=== PATIENT | female | born 1955 | race Caucasian/White ===

== ENCOUNTER → 2017-10-22 10:18 | Outpatient (CLI) | payer MEDICARE, SELFPAY ==
[2017-10-22 10:24] LABS: Microscopic, Urine URINE MICROSCOPIC (MICROSCOPIC)
[2017-10-22 10:43] LABS: Appearance,Urine SL CLOUDY (Clear); Bilirubin,Urine Negative (Negative); Blood, Urine Negative (Negative); Color,Urine YELLOW (Yellow); Glucose,Urine (UA) Negative (Negative); Ketones,Urine Negative (Negative); Nitrate,Urine Negative (Negative); PH,Urine 5.5 (5.0-8.5); Protein,Urine Negative (Negative); Specific Gravity, Urine 1.025 (1.005-1.030); Urobilinogen,Urine 0.2 EU/dl (0.2)
[2017-10-22 10:48] LABS: Leukocyte Esterase,Urine 1+ (Negative)
[2017-10-22 10:50] LABS: Basophils % 0.5 % (0.1-2.0); Eosinophils # 0.2 K/mm3 (0.0-0.4); Hematocrit 48.2 % (37.0-47.0); Hemoglobin 14.7 g/dL (12.2-16.2); Lymphocytes % 37.8 K/mm3 (10-50); Mean Corpuscular HGB Conc 30.6 g/dL (31.8-35.4); Mean Corpuscular Hemoglobin 28.8 pg (27.0-31.2); Mean Corpuscular Volume 94.2 fl (81-99); Mean Platelet Volume 9.1 fl (7.4-10.4); Monocytes # 0.6 K/mm3 (0.1-1.0); Neutrophils # 4.1 K/mm3 (1.8-7.8); Neutrophils % 51.7 % (37.0-80.0); Platelet Count 231 K/mm3 (142-424); Red Blood Count 5.11 M/mm3 (4.20-5.40); Red Cell Distribution Width 13.9 % (11.5-17.5); White Blood Count 7.9 K/mm3 (4.8-10.8)
[2017-10-22 10:53] LABS: Bacteria,Urine 3+ /lpf; Squamous Epithelial Cell,Urine TNTC #/hpf (0-5)
[2017-10-22 11:02] LABS: Total Protein,Urine Random 42.8 mg/dL (0.0-11.9)
[2017-10-22 12:51] LABS: Albumin Level 3.5 gm/dL (3.4-5.0); Anion Gap 13.2 mEq/L (5-15); Blood Urea Nitrogen 27 mg/dL (7-18); Calcium 8.6 mg/dL (8.5-10.1); Carbon Dioxide 26 mmol/L (21.0-32.0); Chloride 102 mmol/L (98-107); Creatinine,Serum 1.55 mg/dL (0.55-1.02); Estimated Glomerular Filt Rate 34 ml/min (>60); GFR (African American) 41 ML/MIN (>60); Glucose 98 mg/dL (74-106); Phosphorous 4.5 mg/dL (2.4-4.9); Potassium 4.2 mmoL/L (3.5-5.1); Sodium 137 mmol/L (136-145)
[2017-10-23 12:05] LABS: Creatinine,Urine Random 216 mg/dL (20-320)
[2017-10-26 18:16] LABS: Parathyroid Hormone Intact 39 pg/mL (15-65)
== END ==
PROVIDERS: PCP Internal Medicine Nephrology; Visit Provider Internal Medicine Nephrology
DX: N18.3 Chronic kidney disease, stage 3 (moderate) (principal); R82.90 Unspecified abnormal findings in urine
CPT/HCPCS: 36415; 80069; 81001; 82570; 82652; 83970; 84155; 85025; 86140; 87086; 87088; 87186

== ENCOUNTER → 2017-10-29 14:27 | Outpatient (POV) | payer MEDICARE, SELFPAY | PROVIDERS: PCP Internal Medicine Nephrology; Visit Provider Internal Medicine Nephrology | DX: Z00.00 Encounter for general adult medical examination without abnormal findings (principal) ==

== ENCOUNTER → 2017-11-13 15:32 | Outpatient (REF) | payer MEDICARE, SELFPAY ==
[2017-11-13 18:55] LABS: Amphetamine/Metha Screen,Urine Negative ng/mL (<1000); Barbiturates Screen,Urine Negative ng/mL (<200); Benzodiazepines Screen,Urine Negative ng/mL (200); Cannabinoid Screen,Urine Negative ng/mL (<50); Cocaine Screen,Urine Negative ng/g (<300); Methadone Screen,Urine Negative ng/mL (<300); Opiate Screen,Urine Positive ng/mL (<300); Phencyclidine Screen,Urine Negative ng/mL (<25)
== END ==
LOC: LAB 15:32
PROVIDERS: Visit Provider Emergency Medicine
DX: Z79.899 Other long term (current) drug therapy (principal)
CPT/HCPCS: 80305

== ENCOUNTER → 2017-12-11 15:28 | Outpatient (REF) | payer MEDICARE, SELFPAY ==
[2017-12-11 22:05] LABS: Amphetamine/Metha Screen,Urine Negative ng/mL (<1000); Barbiturates Screen,Urine Negative ng/mL (<200); Benzodiazepines Screen,Urine Negative ng/mL (200); Cannabinoid Screen,Urine Negative ng/mL (<50); Cocaine Screen,Urine Negative ng/g (<300); Methadone Screen,Urine Negative ng/mL (<300); Opiate Screen,Urine Positive ng/mL (<300); Phencyclidine Screen,Urine Negative ng/mL (<25)
== END ==
LOC: LAB 15:28
PROVIDERS: Visit Provider Emergency Medicine
DX: Z79.899 Other long term (current) drug therapy (principal)
CPT/HCPCS: 80305

== ENCOUNTER → 2018-01-08 15:49 | Outpatient (REF) | payer MEDICARE, SELFPAY ==
[2018-01-08 18:42] LABS: Amphetamine/Metha Screen,Urine Negative ng/mL (<1000); Barbiturates Screen,Urine Negative ng/mL (<200); Benzodiazepines Screen,Urine Negative ng/mL (200); Cannabinoid Screen,Urine Negative ng/mL (<50); Cocaine Screen,Urine Negative ng/g (<300); Methadone Screen,Urine Negative ng/mL (<300); Opiate Screen,Urine Positive ng/mL (<300); Phencyclidine Screen,Urine Negative ng/mL (<25)
== END ==
LOC: LAB 15:49
PROVIDERS: Visit Provider Emergency Medicine
DX: Z79.899 Other long term (current) drug therapy (principal)
CPT/HCPCS: 80305

== ENCOUNTER → 2018-01-21 12:36 | Outpatient (CLI) | payer MEDICARE, SELFPAY ==
[2018-01-21 12:54] LABS: Microscopic, Urine URINE MICROSCOPIC (MICROSCOPIC)
--- NOTE | 2018-01-21 13:14 | US_ITS ---
US kidney retroperitoneal comp HISTORY: Chronic renal disease ITS.REASON: CKD 3 ORDERING PHYSICIAN: Fili Schultz PATIENT AGE: 62 years FINDINGS: RIGHT KIDNEY: 8 4 x 6 cm with mild cortical thinning. No hydronephrosis LEFT KIDNEY:10 x 4 x 6 cm with cortical thinning. No hydronephrosis. Bilateral renal blood flow noted. Unremarkable echogenicity OTHER FINDINGS: No other pertinent findings IMPRESSION: Bilateral renal cortical thinning. No hydronephrosis
[2018-01-21 13:27] LABS: Appearance,Urine SL CLOUDY (Clear); Bilirubin,Urine Negative (Negative); Blood, Urine Negative (Negative); Color,Urine YELLOW (Yellow); Glucose,Urine (UA) TRACE (Negative); Ketones,Urine Negative (Negative); Leukocyte Esterase,Urine Negative (Negative); Nitrate,Urine Negative (Negative); Protein,Urine Negative (Negative); Specific Gravity, Urine 1.025 (1.005-1.030); Urobilinogen,Urine 0.2 EU/dl (0.2)
[2018-01-21 13:32] LABS: Creatinine,Urine Random 83 mg/dL (20-320); Total Protein,Urine Random 28.7 mg/dL (0.0-11.9)
[2018-01-21 13:37] LABS: Bacteria,Urine 2+ /lpf
[2018-01-21 13:53] LABS: Basophils # 0.1 K/mm3 (0-0.2); Basophils % 0.6 % (0.1-2.0); Eosinophils % 0.3 % (0.1-12.0); Hematocrit 50.1 % (37.0-47.0); Hemoglobin 15.6 g/dL (12.2-16.2); Lymphocytes % 25.3 K/mm3 (10-50); Mean Corpuscular HGB Conc 31.1 g/dL (31.8-35.4); Mean Corpuscular Volume 96.3 fl (81-99); Mean Platelet Volume 9.2 fl (7.4-10.4); Monocytes # 0.6 K/mm3 (0.1-1.0); Monocytes % 5.3 % (1.7-9.3); Neutrophils # 8.2 K/mm3 (1.8-7.8); Neutrophils % 68.5 % (37.0-80.0); Platelet Count 121 K/mm3 (142-424); Red Cell Distribution Width 15.8 % (11.5-17.5)
[2018-01-21 14:25] LABS: Albumin Level 3.4 gm/dL (3.4-5.0); Anion Gap 12.4 mEq/L (5-15); Blood Urea Nitrogen 35 mg/dL (7-18); Calcium 9.1 mg/dL (8.5-10.1); Carbon Dioxide 31 mmol/L (21.0-32.0); Chloride 101 mmol/L (98-107); Creatinine,Serum 0.99 mg/dL (0.55-1.02); Estimated Glomerular Filt Rate 57 ml/min (>60); GFR (African American) 69 ML/MIN (>60); Glucose 195 mg/dL (74-106); Phosphorous 3.8 mg/dL (2.4-4.9); Potassium 5.4 mmoL/L (3.5-5.1); Sodium 139 mmol/L (136-145)
[2018-01-22 06:16] LABS: HIV Screen 4th Generation wRfx Non Reactive (Non Reactive)
[2018-01-22 12:10] LABS: Complement C3 144 mg/dL (82-167); Hepatitis C Antibody >11.0 s/co ratio (0.0-0.9)
== END ==
PROVIDERS: PCP Emergency Medicine; Visit Provider Internal Medicine Nephrology
DX: N18.3 Chronic kidney disease, stage 3 (moderate) (principal); D63.1 Anemia in chronic kidney disease; R82.90 Unspecified abnormal findings in urine; Z11.4 Encounter for screening for human immunodeficiency virus [HIV]
CPT/HCPCS: 36415; 76770; 80069; 81001; 82570; 84155; 85025; 86161; 86703; 87086; 87380; 87522; G0432

== ENCOUNTER → 2018-02-04 15:42 | Outpatient (POV) | payer MEDICARE, SELFPAY | PROVIDERS: PCP Emergency Medicine; Visit Provider Internal Medicine Nephrology | DX: Z00.00 Encounter for general adult medical examination without abnormal findings (principal) ==

== ENCOUNTER → 2018-02-06 14:50 | Outpatient (REF) | payer MEDICARE, SELFPAY ==
[2018-02-06 19:08] LABS: Amphetamine/Metha Screen,Urine Negative ng/mL (<1000); Barbiturates Screen,Urine Negative ng/mL (<200); Benzodiazepines Screen,Urine Negative ng/mL (200); Cannabinoid Screen,Urine Positive ng/mL (<50); Cocaine Screen,Urine Negative ng/g (<300); Methadone Screen,Urine Negative ng/mL (<300); Opiate Screen,Urine Positive ng/mL (<300); Phencyclidine Screen,Urine Negative ng/mL (<25)
== END ==
LOC: LAB 14:50
PROVIDERS: Visit Provider Emergency Medicine
DX: Z79.899 Other long term (current) drug therapy (principal)
CPT/HCPCS: 80305

== ENCOUNTER → 2018-03-08 09:29 | Outpatient (REF) | payer MEDICARE, SELFPAY ==
[2018-03-11 13:54] LABS: Amphetamine/Metha Screen,Urine Negative ng/mL (<1000); Barbiturates Screen,Urine Negative ng/mL (<200); Benzodiazepines Screen,Urine Positive ng/mL (200); Cannabinoid Screen,Urine Negative ng/mL (<50); Cocaine Screen,Urine Negative ng/g (<300); Methadone Screen,Urine Negative ng/mL (<300); Opiate Screen,Urine Positive ng/mL (<300); Phencyclidine Screen,Urine Positive ng/mL (<25)
== END ==
LOC: LAB 09:29
PROVIDERS: Visit Provider Emergency Medicine
DX: Z79.899 Other long term (current) drug therapy (principal)
CPT/HCPCS: 80305

== ENCOUNTER → 2018-04-05 14:09 | Outpatient (CLI) | payer MEDICARE, SELFPAY ==
[2018-04-05 18:42] LABS: Amphetamine/Metha Screen,Urine Negative ng/mL (<1000); Barbiturates Screen,Urine Negative ng/mL (<200); Benzodiazepines Screen,Urine Negative ng/mL (<200); Cannabinoid Screen,Urine Negative ng/mL (<50); Cocaine Screen,Urine Negative ng/mL (<300); Methadone Screen,Urine Negative ng/mL (<300); Opiate Screen,Urine Positive ng/mL (<300); Phencyclidine Screen,Urine Negative ng/mL (<25)
== END ==
PROVIDERS: Visit Provider Emergency Medicine
DX: Z79.899 Other long term (current) drug therapy (principal)
CPT/HCPCS: 80305

== ENCOUNTER → 2018-06-05 14:34 | Outpatient (CLI) | payer MEDICARE, SELFPAY ==
[2018-06-05 18:38] LABS: Amphetamine/Metha Screen,Urine Negative ng/mL (<1000); Barbiturates Screen,Urine Negative ng/mL (<200); Benzodiazepines Screen,Urine Positive ng/mL (<200); Cannabinoid Screen,Urine Negative ng/mL (<50); Cocaine Screen,Urine Negative ng/mL (<300); Methadone Screen,Urine Negative ng/mL (<300); Opiate Screen,Urine Positive ng/mL (<300); Phencyclidine Screen,Urine Negative ng/mL (<25)
== END ==
PROVIDERS: Visit Provider Emergency Medicine
DX: Z79.899 Other long term (current) drug therapy (principal)
CPT/HCPCS: 80305

== ENCOUNTER → 2018-07-05 13:45 | Outpatient (REF) | payer MEDICARE, SELFPAY ==
[2018-07-05 18:37] LABS: Amphetamine/Metha Screen,Urine Negative ng/mL (<1000); Barbiturates Screen,Urine Negative ng/mL (<200); Benzodiazepines Screen,Urine Negative ng/mL (<200); Cannabinoid Screen,Urine Negative ng/mL (<50); Cocaine Screen,Urine Negative ng/mL (<300); Methadone Screen,Urine Negative ng/mL (<300); Opiate Screen,Urine Positive ng/mL (<300); Phencyclidine Screen,Urine Negative ng/mL (<25)
[2018-07-05 18:53] LABS: Anion Gap 14.1 mEq/L (5-15); Blood Urea Nitrogen 32 mg/dL (7-18); Calcium 8.6 mg/dL (8.5-10.1); Carbon Dioxide 28 mmol/L (21.0-32.0); Chloride 90 mmol/L (98-107); Creatinine,Serum 1.84 mg/dL (0.55-1.02); Estimated Glomerular Filt Rate 28 ml/min (>60); GFR (African American) 34 ML/MIN (>60); Potassium 5.1 mmoL/L (3.5-5.1); Sodium 127 mmol/L (136-145)
[2018-07-05 19:00] LABS: Hemoglobin A1C 9.4 % (0.0-7.0)
[2018-07-05 20:02] LABS: Glucose 892 mg/dL (74-106)
== END ==
LOC: LAB 13:45
PROVIDERS: Visit Provider Emergency Medicine
DX: Z79.899 Other long term (current) drug therapy (principal); E11.9 Type 2 diabetes mellitus without complications
CPT/HCPCS: 80048; 80305; 83036

== ENCOUNTER → 2018-07-15 07:58 | Outpatient (REF) | payer MEDICARE, SELFPAY ==
[2018-07-16 08:39] LABS: Anion Gap 13.7 mEq/L (5-15); Blood Urea Nitrogen 26 mg/dL (7-18); Calcium 9.1 mg/dL (8.5-10.1); Carbon Dioxide 28 mmol/L (21.0-32.0); Chloride 104 mmol/L (98-107); Creatinine,Serum 1.05 mg/dL (0.55-1.02); Estimated Glomerular Filt Rate 53 ml/min (>60); GFR (African American) 64 ML/MIN (>60); Glucose 302 mg/dL (74-106); Potassium 4.7 mmoL/L (3.5-5.1); Sodium 141 mmol/L (136-145)
== END ==
LOC: LAB 07:58
PROVIDERS: Visit Provider Emergency Medicine
DX: I10 Essential (primary) hypertension (principal)
CPT/HCPCS: 80048

== ENCOUNTER → 2018-08-05 17:54 | Outpatient (CLI) | payer MEDICARE, SELFPAY ==
[2018-08-05 20:16] LABS: Amphetamine/Metha Screen,Urine Negative ng/mL (<1000); Barbiturates Screen,Urine Negative ng/mL (<200); Benzodiazepines Screen,Urine Negative ng/mL (<200); Cannabinoid Screen,Urine Negative ng/mL (<50); Cocaine Screen,Urine Negative ng/mL (<300); Methadone Screen,Urine Negative ng/mL (<300); Opiate Screen,Urine Positive ng/mL (<300); Phencyclidine Screen,Urine Negative ng/mL (<25)
== END ==
PROVIDERS: Visit Provider Emergency Medicine
DX: Z79.899 Other long term (current) drug therapy (principal)
CPT/HCPCS: 80305

== ENCOUNTER → 2018-09-03 18:03 | Outpatient (CLI) | payer MEDICARE, SELFPAY ==
[2018-09-03 19:25] LABS: Amphetamine/Metha Screen,Urine Negative ng/mL (<1000); Barbiturates Screen,Urine Negative ng/mL (<200); Benzodiazepines Screen,Urine Negative ng/mL (<200); Cannabinoid Screen,Urine Negative ng/mL (<50); Cocaine Screen,Urine Negative ng/mL (<300); Methadone Screen,Urine Negative ng/mL (<300); Opiate Screen,Urine Positive ng/mL (<300); Phencyclidine Screen,Urine Negative ng/mL (<25)
== END ==
PROVIDERS: Visit Provider Emergency Medicine
DX: Z79.899 Other long term (current) drug therapy (principal)
CPT/HCPCS: 80305

== ENCOUNTER → 2018-10-04 18:33 | Outpatient (CLI) | payer MEDICARE, SELFPAY ==
[2018-10-04 21:21] LABS: Amphetamine/Metha Screen,Urine Negative ng/mL (<1000); Barbiturates Screen,Urine Negative ng/mL (<200); Benzodiazepines Screen,Urine Positive ng/mL (<200); Cannabinoid Screen,Urine Negative ng/mL (<50); Cocaine Screen,Urine Negative ng/mL (<300); Methadone Screen,Urine Negative ng/mL (<300); Opiate Screen,Urine Positive ng/mL (<300); Phencyclidine Screen,Urine Negative ng/mL (<25)
[2018-10-10 09:23] LABS: Alprazolam Negative (Cutoff=100); Benzodiazepines Positive ng/mL (Cutoff=100); Clonazepam Negative (Cutoff=100); Flurazepam Negative (Cutoff=100); Lorazepam Negative (Cutoff=100); Midazolam Negative (Cutoff=100); Temazepam Positive (.); Triazolam Negative (Cutoff=100)
== END ==
PROVIDERS: Visit Provider Emergency Medicine
DX: Z79.899 Other long term (current) drug therapy (principal)
CPT/HCPCS: 80305; 80346

== ENCOUNTER → 2018-10-15 19:10 | Outpatient (CLI) | payer MEDICARE, SELFPAY ==
[2018-10-15 19:44] LABS: Basophils % 0.5 % (0.1-2.0); Eosinophils # 0.1 K/mm3 (0.0-0.4); Eosinophils % 0.6 % (0.1-12.0); Hematocrit 43.2 % (37.0-47.0); Lymphocytes # 2.7 K/mm3 (0.7-4.5); Lymphocytes % 35.2 % (10-50); Mean Corpuscular Hemoglobin 31.2 pg (27.0-31.2); Mean Platelet Volume 9.4 fl (7.4-10.4); Monocytes # 0.5 K/mm3 (0.1-1.0); Monocytes % 5.9 % (1.7-9.3); Neutrophils # 4.5 K/mm3 (1.8-7.8); Neutrophils % 57.9 % (37.0-80.0); Platelet Count 238 K/mm3 (142-424); Red Blood Count 4.16 M/mm3 (4.20-5.40); Red Cell Distribution Width 14.3 % (11.5-17.5); White Blood Count 7.7 K/mm3 (4.8-10.8)
[2018-10-15 20:01] LABS: Alanine Aminotransferase 21 U/L (12-78); Albumin Level 3.4 gm/dL (3.4-5.0); Alkaline Phosphatase 90 U/L (46-116); Anion Gap 16.4 mEq/L (5-15); Aspartate Amino Transferase 18 U/L (15-37); Bilirubin,Total 0.2 mg/dL (0.2-1.0); Blood Urea Nitrogen 15 mg/dL (7-18); Calcium 8.7 mg/dL (8.5-10.1); Carbon Dioxide 27 mmol/L (21.0-32.0); Chloride 103 mmol/L (98-107); Chol/HDL Ratio 3.3 (1-3.5); Cholesterol 157 mg/dL (140-200); Creatinine,Serum 1.23 mg/dL (0.55-1.02); Estimated Glomerular Filt Rate 44 ml/min (>60); Free T4 (Free Thyroxine) 1.37 ng/dl (0.76-1.46); GFR (African American) 54 ML/MIN (>60); Globulin 3.4 gm/dl (1.3-3.2); Glucose 99 mg/dL (74-106); HDL Cholesterol 47 mg/dL (29-89); LDL Cholesterol 85 mg/dL (0-130); Potassium 4.4 mmoL/L (3.5-5.1); Sodium 142 mmol/L (136-145); Thyroid Stimulating Hormone 0.39 uIU/ml (0.358-3.740); Total Protein,Serum 6.8 gm/dL (6.4-8.2); Triglycerides 127 mg/dL (30-200); VLDL Cholesterol 25 mg/dL (0-40)
[2018-10-17 10:22] LABS: Microalbumin, Urine 50.1 ug/mL (Not Estab.)
== END ==
PROVIDERS: Visit Provider Emergency Medicine
DX: E11.9 Type 2 diabetes mellitus without complications (principal); R39.9 Unspecified symptoms and signs involving the genitourinary system
CPT/HCPCS: 80053; 80061; 82043; 82570; 83036; 84439; 84443; 85025

== ENCOUNTER → 2019-01-29 16:55 | Outpatient (CLI) | payer MEDICARE, SELFPAY ==
[2019-01-29 18:17] LABS: Amphetamine/Metha Screen,Urine Negative ng/mL (<1000); Barbiturates Screen,Urine Negative ng/mL (<200); Benzodiazepines Screen,Urine Negative ng/mL (<200); Cannabinoid Screen,Urine Negative ng/mL (<50); Cocaine Screen,Urine Negative ng/mL (<300); Methadone Screen,Urine Negative ng/mL (<300); Opiate Screen,Urine Positive ng/mL (<300); Phencyclidine Screen,Urine Negative ng/mL (<25)
== END ==
PROVIDERS: Visit Provider Emergency Medicine
DX: Z79.899 Other long term (current) drug therapy (principal)
CPT/HCPCS: 80305

== ENCOUNTER → 2019-03-28 16:34 | Outpatient (CLI) | payer MEDICARE, SELFPAY ==
[2019-03-28 18:06] LABS: Amphetamine/Metha Screen,Urine Negative ng/mL (<1000); Barbiturates Screen,Urine Negative ng/mL (<200); Benzodiazepines Screen,Urine Negative ng/mL (<200); Cannabinoid Screen,Urine Positive ng/mL (<50); Cocaine Screen,Urine Negative ng/mL (<300); Methadone Screen,Urine Negative ng/mL (<300); Opiate Screen,Urine Positive ng/mL (<300); Phencyclidine Screen,Urine Negative ng/mL (<25)
== END ==
PROVIDERS: Visit Provider Emergency Medicine
DX: Z79.899 Other long term (current) drug therapy (principal)
CPT/HCPCS: 80305

== ENCOUNTER → 2019-06-11 18:31 | Outpatient (CLI) | payer MEDICARE, SELFPAY ==
[2019-06-11 19:03] LABS: Basophils % 0.3 % (0.1-2.0); Eosinophils # 0.2 K/mm3 (0.0-0.4); Eosinophils % 1.7 % (0.1-12.0); Hematocrit 44.9 % (37.0-47.0); Lymphocytes # 3.2 K/mm3 (0.7-4.5); Lymphocytes % 34.3 % (10-50); Mean Corpuscular HGB Conc 31.1 g/dL (31.8-35.4); Mean Corpuscular Volume 102.7 fl (81-99); Mean Platelet Volume 9.4 fl (7.4-10.4); Monocytes # 0.7 K/mm3 (0.1-1.0); Monocytes % 7.3 % (1.7-9.3); Neutrophils # 5.2 K/mm3 (1.8-7.8); Neutrophils % 56.4 % (37.0-80.0); Platelet Count 282 K/mm3 (142-424); Red Blood Count 4.37 M/mm3 (4.20-5.40); White Blood Count 9.3 K/mm3 (4.8-10.8)
[2019-06-11 19:20] LABS: Hemoglobin A1C 6.3 % (0.0-7.0)
[2019-06-11 19:24] LABS: Alanine Aminotransferase 26 U/L (12-78); Albumin Level 3.7 gm/dL (3.4-5.0); Albumin/Globulin Ratio 1.2 (1.1-1.8); Alkaline Phosphatase 68 U/L (46-116); Anion Gap 12.7 mEq/L (5-15); Aspartate Amino Transferase 23 U/L (15-37); Bilirubin,Total 0.4 mg/dL (0.2-1.0); Blood Urea Nitrogen 14 mg/dL (7-18); Calcium 9.2 mg/dL (8.5-10.1); Carbon Dioxide 31 mmol/L (21.0-32.0); Chloride 102 mmol/L (98-107); Chol/HDL Ratio 4.3 (1-3.5); Cholesterol 189 mg/dL (140-200); Creatinine,Serum 1.07 mg/dL (0.55-1.02); Estimated Glomerular Filt Rate 52 ml/min (>60); Free T4 (Free Thyroxine) 1.17 ng/dl (0.76-1.46); GFR (African American) 63 ML/MIN (>60); Globulin 3.2 gm/dl (1.3-3.2); Glucose 132 mg/dL (74-106); HDL Cholesterol 44 mg/dL (29-89); LDL Cholesterol 122 mg/dL (0-130); Potassium 4.7 mmoL/L (3.5-5.1); Sodium 141 mmol/L (136-145); Thyroid Stimulating Hormone 3.25 uIU/ml (0.358-3.740); Total Protein,Serum 6.9 gm/dL (6.4-8.2); Triglycerides 116 mg/dL (30-200); VLDL Cholesterol 23 mg/dL (0-40)
[2019-06-13 10:10] LABS: Vitamin D 25 Hydroxy 24.7 ng/mL (30.0-100.0)
== END ==
PROVIDERS: Visit Provider Emergency Medicine
DX: E11.9 Type 2 diabetes mellitus without complications (principal); Z79.4 Long term (current) use of insulin; E55.9 Vitamin D deficiency, unspecified
CPT/HCPCS: 80053; 80061; 82652; 83036; 84439; 84443; 85025

== ENCOUNTER → 2019-06-27 16:47 | Outpatient (CLI) | payer MEDICARE, SELFPAY ==
[2019-07-01 07:06] LABS: Vitamin B12 1287 pg/mL (232-1245)
== END ==
PROVIDERS: Visit Provider Emergency Medicine
DX: R53.83 Other fatigue (principal)
CPT/HCPCS: 82607; 82746

== ENCOUNTER → 2019-10-06 17:14 | Outpatient (CLI) | payer MEDICARE, SELFPAY ==
[2019-10-06 21:39] LABS: Amphetamine/Metha Screen,Urine Negative ng/mL (<1000); Barbiturates Screen,Urine Negative ng/mL (<200); Benzodiazepines Screen,Urine Positive ng/mL (<200); Cannabinoid Screen,Urine Negative ng/mL (<50); Cocaine Screen,Urine Negative ng/mL (<300); Methadone Screen,Urine Negative ng/mL (<300); Opiate Screen,Urine Positive ng/mL (<300); Phencyclidine Screen,Urine Negative ng/mL (<25)
== END ==
PROVIDERS: Visit Provider Emergency Medicine
DX: Z79.899 Other long term (current) drug therapy (principal)
CPT/HCPCS: 80305

== ENCOUNTER → 2021-01-04 08:10 | Outpatient (CLI) | payer MEDICARE, MEDICAID, SELFPAY ==
--- NOTE | 2021-01-04 08:13 | CA_ITS ---
APPROVED REPORT Left Lower Extremity Venous Study for DVT. Excavating Contractor: RYLIE Arnold Indications Lower Extremity Pain: Left left leg pain Vein Imaging CFV (L): compressive, spontaneous, phasic, augmentation SFJ (L): compressive, spontaneous, phasic, augmentation FEM (L): compressive, spontaneous, phasic, augmentation POP (L): compressive, spontaneous, phasic, augmentation DFV (L): compressive, spontaneous, phasic, augmentation PTV (L): compressive, spontaneous, phasic, augmentation GSV (L): compressive, spontaneous, phasic, augmentation SSV (L): compressive, spontaneous, phasic, augmentation Peroneals (L):compressive, spontaneous, phasic, augmentation GAS (L): compressive, spontaneous, phasic, augmentation Findings Negative DVT/SVT. Vessels fully compressible. Conclusion Negative DVT/SVT. Vessels fully compressible. Electronically signed by : Ronn Almanza MD 01/04/2021 16:40:37
== END ==
PROVIDERS: PCP Emergency Medicine; Visit Provider Emergency Medicine
DX: M79.605 Pain in left leg (principal)
CPT/HCPCS: 93971

== ENCOUNTER → 2021-02-01 13:52 | Outpatient (CLI) | payer MEDICARE, MEDICAID, SELFPAY ==
[2021-02-01 14:57] LABS: Amphetamine/Metha Screen,Urine Negative ng/ml (<1000)
[2021-02-01 14:58] LABS: Barbiturates Screen,Urine Negative ng/ml (<200); Benzodiazepines Screen,Urine Positive ng/ml (<200)
[2021-02-01 14:59] LABS: Cannabinoid Screen,Urine Negative ng/ml (<50); Cocaine Screen,Urine Negative ng/ml (<300)
[2021-02-01 15:00] LABS: Methadone Screen,Urine Negative ng/ml (<300)
[2021-02-01 15:03] LABS: Opiate Screen,Urine Positive ng/ml (<300)
[2021-02-01 15:04] LABS: Phencyclidine Screen,Urine Negative ng/ml (<25)
== END ==
PROVIDERS: Visit Provider Emergency Medicine
DX: Z79.899 Other long term (current) drug therapy (principal)
CPT/HCPCS: 80305

== ENCOUNTER → 2021-03-29 13:38 | Outpatient (CLI) | payer MEDICARE, MEDICAID, SELFPAY ==
[2021-03-29 14:32] LABS: Amphetamine/Metha Screen,Urine Negative ng/ml (<1000)
[2021-03-29 14:33] LABS: Barbiturates Screen,Urine Negative ng/ml (<200); Benzodiazepines Screen,Urine Positive ng/ml (<200)
[2021-03-29 14:34] LABS: Cannabinoid Screen,Urine Negative ng/ml (<50)
[2021-03-29 14:35] LABS: Cocaine Screen,Urine Negative ng/ml (<300); Methadone Screen,Urine Negative ng/ml (<300)
[2021-03-29 14:36] LABS: Opiate Screen,Urine Positive ng/ml (<300); Phencyclidine Screen,Urine Negative ng/ml (<25)
== END ==
PROVIDERS: Visit Provider Emergency Medicine
DX: Z79.899 Other long term (current) drug therapy (principal)
CPT/HCPCS: 80305

== ENCOUNTER → 2021-05-25 16:08 | Outpatient (CLI) | payer MEDICARE, MEDICAID, SELFPAY ==
[2021-05-25 16:28] LABS: Basophils # 0.1 K/mm3 (0-0.2); Basophils % 1.1 % (0.1-2.0); Eosinophils # 0.1 K/mm3 (0.0-0.4); Eosinophils % 1.7 % (0.1-12.0); Hematocrit 47.1 % (37.0-47.0); Hemoglobin 14.5 g/dL (12.2-16.2); Lymphocytes # 2.4 K/mm3 (0.7-4.5); Lymphocytes % 35.5 % (10-50); Mean Corpuscular HGB Conc 30.8 g/dL (31.8-35.4); Mean Corpuscular Hemoglobin 30.4 pg (27.0-31.2); Mean Corpuscular Volume 98.5 fl (81-99); Mean Platelet Volume 10.8 fl (7.4-10.4); Monocytes # 0.4 K/mm3 (0.1-1.0); Monocytes % 6.4 % (1.7-9.3); Neutrophils # 3.7 K/mm3 (1.8-7.8); Neutrophils % 55.4 % (37.0-80.0); Platelet Count 179 K/mm3 (142-424); Red Blood Count 4.78 M/mm3 (4.20-5.40); Red Cell Distribution Width 14.6 % (11.5-17.5); White Blood Count 6.7 K/mm3 (4.8-10.8)
[2021-05-25 16:38] LABS: Alanine Aminotransferase 15 U/L (12-78); Albumin/Globulin Ratio 1.5 (1.1-1.8); Alkaline Phosphatase 99 U/L (38-126); Aspartate Amino Transferase 25 U/L (14-36); Bilirubin,Total 0.3 mg/dl (0.2-1.3); Blood Urea Nitrogen 16 mg/dl (7-17); Calcium 8.7 mg/dl (8.4-10.2); Carbon Dioxide 26 mmol/L (22.0-30.0); Chloride 103 mmol/L (98-107); Chol/HDL Ratio 2.6 (1-3.5); Cholesterol 164 mg/dl (140-200); Estimated Glomerular Filt Rate 72 ml/min (>60); GFR (African American) 87 ML/MIN (>60); Globulin 2.7 g/dL (1.3-3.2); Glucose 157 mg/dl (74-100); HDL Cholesterol 64 mg/dl (40-60); Sodium 139 mmol/L (136-145); Total Protein,Serum 6.7 g/dl (6.3-8.2); Triglycerides 107 mg/dl (30-150); VLDL Cholesterol 21 mg/dL (0-40)
[2021-05-25 16:49] LABS: Direct LDL Cholesterol 81.35 mg/dL (100-129)
[2021-05-25 16:54] LABS: 25-OH Vitamin D, Total 38.4 ng/mL (30-100)
[2021-05-25 16:55] LABS: Free T4 (Free Thyroxine) 1.04 ng/dl (0.78-2.19)
[2021-05-25 17:02] LABS: Amphetamine/Metha Screen,Urine Negative ng/ml (<1000)
[2021-05-25 17:03] LABS: Barbiturates Screen,Urine Negative ng/ml (<200); Benzodiazepines Screen,Urine Positive ng/ml (<200)
[2021-05-25 17:04] LABS: Cocaine Screen,Urine Negative ng/ml (<300)
[2021-05-25 17:05] LABS: Methadone Screen,Urine Negative ng/ml (<300)
[2021-05-25 17:06] LABS: Opiate Screen,Urine Negative ng/ml (<300)
[2021-05-25 17:08] LABS: Phencyclidine Screen,Urine Negative ng/ml (<25)
[2021-05-25 17:12] LABS: Cannabinoid Screen,Urine Negative ng/ml (<50)
[2021-05-25 19:52] LABS: Hemoglobin A1C 4.9 % (4.0-6.0)
== END ==
PROVIDERS: Visit Provider Emergency Medicine
DX: E11.9 Type 2 diabetes mellitus without complications (principal); E55.9 Vitamin D deficiency, unspecified; Z79.899 Other long term (current) drug therapy; R82.90 Unspecified abnormal findings in urine
CPT/HCPCS: 80053; 80061; 80305; 82306; 83036; 84439; 84443; 85025; 87086

== ENCOUNTER → 2021-07-18 14:13 | Outpatient (CLI) | payer MEDICARE, MEDICAID, SELFPAY ==
[2021-07-18 14:54] LABS: Amphetamine/Metha Screen,Urine Negative ng/ml (<1000)
[2021-07-18 14:55] LABS: Barbiturates Screen,Urine Negative ng/ml (<200); Benzodiazepines Screen,Urine Negative ng/ml (<200)
[2021-07-18 14:56] LABS: Cannabinoid Screen,Urine Negative ng/ml (<50)
[2021-07-18 14:57] LABS: Cocaine Screen,Urine Negative ng/ml (<300)
[2021-07-18 14:59] LABS: Methadone Screen,Urine Negative ng/ml (<300); Opiate Screen,Urine Positive ng/ml (<300)
[2021-07-18 15:00] LABS: Phencyclidine Screen,Urine Negative ng/ml (<25)
== END ==
PROVIDERS: Visit Provider Emergency Medicine
DX: Z79.899 Other long term (current) drug therapy (principal)
CPT/HCPCS: 80305

== ENCOUNTER → 2021-09-16 18:18 | Outpatient (CLI) | payer MEDICARE, MEDICAID, SELFPAY ==
[2021-09-16 19:50] LABS: Amphetamine/Metha Screen,Urine Negative ng/ml (<1000)
[2021-09-16 19:51] LABS: Barbiturates Screen,Urine Negative ng/ml (<200)
[2021-09-16 19:53] LABS: Benzodiazepines Screen,Urine Positive ng/ml (<200)
[2021-09-16 19:54] LABS: Cannabinoid Screen,Urine Negative ng/ml (<50); Cocaine Screen,Urine Negative ng/ml (<300)
[2021-09-16 19:55] LABS: Methadone Screen,Urine Negative ng/ml (<300); Opiate Screen,Urine Positive ng/ml (<300)
[2021-09-16 19:56] LABS: Phencyclidine Screen,Urine Negative ng/ml (<25)
== END ==
PROVIDERS: Visit Provider Emergency Medicine
DX: Z79.899 Other long term (current) drug therapy (principal)
CPT/HCPCS: 80305

== ENCOUNTER → 2021-11-16 14:50 | Outpatient (CLI) | payer MEDICARE, MEDICAID, SELFPAY ==
[2021-11-16 13:37] LABS: Barbiturates Screen,Urine Negative ng/ml (<200)
[2021-11-16 13:38] LABS: Benzodiazepines Screen,Urine Positive ng/ml (<200)
[2021-11-16 13:39] LABS: Amphetamine/Metha Screen,Urine Negative ng/ml (<1000); Cannabinoid Screen,Urine Negative ng/ml (<50)
[2021-11-16 13:40] LABS: Cocaine Screen,Urine Negative ng/ml (<300)
[2021-11-16 13:41] LABS: Methadone Screen,Urine Negative ng/ml (<300); Opiate Screen,Urine Negative ng/ml (<300)
[2021-11-16 13:42] LABS: Phencyclidine Screen,Urine Negative ng/ml (<25)
== END ==
PROVIDERS: Visit Provider Emergency Medicine
DX: Z79.899 Other long term (current) drug therapy (principal)
CPT/HCPCS: 80305

== ENCOUNTER → 2022-01-11 12:55 | Outpatient (CLI) | payer MEDICARE, MEDICAID, SELFPAY ==
[2022-01-11 14:20] LABS: Amphetamine/Metha Screen,Urine Negative ng/ml (<1000)
[2022-01-11 14:21] LABS: Barbiturates Screen,Urine Negative ng/ml (<200); Benzodiazepines Screen,Urine Positive ng/ml (<200)
[2022-01-11 14:23] LABS: Cannabinoid Screen,Urine Negative ng/ml (<50); Cocaine Screen,Urine Negative ng/ml (<300)
[2022-01-11 14:24] LABS: Methadone Screen,Urine Negative ng/ml (<300)
[2022-01-11 14:27] LABS: Opiate Screen,Urine Positive ng/ml (<300)
[2022-01-11 14:28] LABS: Phencyclidine Screen,Urine Negative ng/ml (<25)
== END ==
PROVIDERS: PCP Emergency Medicine; Visit Provider Emergency Medicine
DX: Z79.899 Other long term (current) drug therapy (principal)
CPT/HCPCS: 80305

== ENCOUNTER → 2022-03-28 14:22 | Outpatient (CLI) | payer MEDICARE, MEDICAID, SELFPAY ==
[2022-03-28 15:05] LABS: Amphetamine/Metha Screen,Urine Negative ng/ml (<1000)
[2022-03-28 15:06] LABS: Barbiturates Screen,Urine Negative ng/ml (<200)
[2022-03-28 15:07] LABS: Benzodiazepines Screen,Urine Positive ng/ml (<200); Cannabinoid Screen,Urine Negative ng/ml (<50)
[2022-03-28 15:08] LABS: Cocaine Screen,Urine Negative ng/ml (<300)
[2022-03-28 15:09] LABS: Methadone Screen,Urine Negative ng/ml (<300); Opiate Screen,Urine Positive ng/ml (<300)
[2022-03-28 15:10] LABS: Phencyclidine Screen,Urine Negative ng/ml (<25)
== END ==
PROVIDERS: PCP Emergency Medicine; Visit Provider Emergency Medicine
DX: Z79.899 Other long term (current) drug therapy (principal)
CPT/HCPCS: 80305

== ENCOUNTER → 2022-06-23 07:17 | Outpatient (CLI) | payer MEDICARE, MEDICAID, SELFPAY ==
[2022-06-23 19:06] LABS: Amphetamine/Metha Screen,Urine Negative ng/ml (<1000)
[2022-06-23 19:07] LABS: Barbiturates Screen,Urine Negative ng/ml (<200)
[2022-06-23 19:09] LABS: Benzodiazepines Screen,Urine Positive ng/ml (<200); Cannabinoid Screen,Urine Positive ng/ml (<50)
[2022-06-23 19:10] LABS: Cocaine Screen,Urine Negative ng/ml (<300)
[2022-06-23 19:11] LABS: Methadone Screen,Urine Negative ng/ml (<300); Opiate Screen,Urine Negative ng/ml (<300)
[2022-06-23 19:12] LABS: Phencyclidine Screen,Urine Negative ng/ml (<25)
== END ==
PROVIDERS: PCP Emergency Medicine; Visit Provider Emergency Medicine
DX: Z79.899 Other long term (current) drug therapy (principal)
CPT/HCPCS: 80305

== ENCOUNTER 2022-06-23 16:02 | Observation (INO) | payer MEDICARE, MEDICAID, SELFPAY ==
[2022-06-23] VITALS (9 sets, daily range): BP systolic 133–162; BP diastolic 67–96; PULSE 70–106; RESP 18–40; TEMP 36.8–36.9; O2SAT 86–99; BMI 24.3
--- NOTE | 2022-06-23 16:06 | CA_ITS ---
APPROVED REPORT EXAM: Comprehensive 2D, Doppler, and color-flow Echocardiogram Licensed Marine Engineer: Lidya Harris RT(R) Ht: 5 ft 1 in Wt: 136lbs BSA: 1.60 BP: 155/91 mmHg Indications: SOB, SMOKER, COPD, cough, hepatitis C, HTN, limited windows due to lung interference. 2D Dimensions LA Volume 15.80 mL LA Volume Index 9.87 mL/m2 (M/F) 16-34 M-Mode Dimensions RVDd 2.77 cm (0.9-2.6) LVDd 3.94 cm (3.5-5.7) LVDs 3.30 cm (3.5-5.7) IVSd 1.33 cm (0.6-1.1) PWd 1.00 cm (0.6-1.1) EF (Teich) 34.70% FS 16.20% EDV (Teich) 67.50 mL ESV (Teich) 44.10 mL LV Diastology E Decel Time 147.00 (160-240 msec) E/A Ratio 0.6 MED E' 6.50 (< 7 cm/sec) E'/MED E' Ratio 8.23 (>14) LAT E' 6.50 (<10 cm/sec) E/LAT E' Ratio 8.23 (>14) Mitral Valve MV E Max Ayush. 54.00 (40-130 cm/s) MV A Velocity 88.00 (40-130 cm/s) E/A Ratio 0.61 MV Decel. Time 147.00 (160-240 ms) MV PHT 43.00 ms Left Ventricle Technically difficult study because of the patient factors and poor acoustic windows. Left atrium is mildly enlarged, left ventricle is normal size mild concentric left ventricular hypertrophy, estimated ejection fraction approximately 50%, there is abnormal septal motion. Diastolic parameters are inconclusive. Right Ventricle Right atrium and right ventricle are mildly enlarged with normal contractility. Aortic Valve Aortic valve is minimally thickened and fibrosed there is no aortic stenosis. There is no aortic insufficiency. Mitral Valve Mitral valve is grossly normal, there is no significant mitral regurgitation seen. Tricuspid Valve Tricuspid valve grossly normal, there is no significant tricuspid regurgitation seen to calculate right ventricular systolic pressure. Pulmonic Valve Pulmonic valve is poorly visualized. Great Vessels Aortic root is normal size. Inferior vena cava is normal size with normal inspiratory collapse. Pericardium No significant pericardial effusion noted. Conclusion 1. Technically difficult and limited study. Normal left ventricular size mild concentric left ventricular hypertrophy, estimated ejection fraction 50% with no regional wall motion abnormality, endocardial surfaces are poorly visualized, there is abnormal septal motion. 2. Mildly enlarged right ventricle with normal contractility. 3. No significant pericardial effusion noted. 4. Inferior vena cava normal size with normal inspiratory collapse. Electronically signed by : Lizandro Cool MD 06/23/2022 16:49:48
--- NOTE | 2022-06-23 16:06 | PC.NURSE ---
called to see if vascular was still in the building, advised we will need an echo per dr schwartz
--- NOTE | 2022-06-23 16:13 | XR_ITS ---
PROCEDURE INFORMATION: Exam: XR Chest Exam date and time: 06/23/2022 4:37 PM Age: 67 years old Clinical indication: Cough; Patient HX: Copd, emphysema, smoker TECHNIQUE: Imaging protocol: Radiologic exam of the chest. Views: 1 view. COMPARISON: CR CXR2V XR chest 2V 05/06/2018 5:44 PM FINDINGS: Lungs: Hyperlucent changes are demonstrated bilaterally, most pronounced in both upper lobes. There is persistent associated volume loss with irregularity of the lung parenchyma. A chronic right pneumothorax could not be excluded. Findings are unchanged compared with the previous study. Persistent regions of parenchymal scarring at both lung bases. Superimposed findings suggesting prominent bullous changes particularly in the right lung apex. Could not exclude chronic right pneumothorax. Findings stable. Pleural spaces: Regions of pleural reactive change at the right lung apex. Increase in the lung volumes is demonstrated. Heart/Mediastinum: Unremarkable. No cardiomegaly. Diaphragm: There is flattening of the hemidiaphragms. Bones/joints: Chronic left rib fractures. IMPRESSION: 1. Chronic obstructive pulmonary disease. 2. Persistent hyperlucent changes at the right lung apex. Could not exclude chronic right upper lobe pneumothorax.
--- NOTE | 2022-06-23 16:15 | ECG_ITS ---
APPROVED REPORT Exam: Resting ECG HR:96 bpm ECG Measurements Heart Rate 96 AXES IA 128 P 58 QRSd 130 QRS -21 QT 401 T 106 QTc 455 Conclusion SINUS RHYTHM LEFT BUNDLE BRANCH BLOCK [120+ ms QRS DURATION, 80+ ms Q/S IN V1/V2, 85+ ms R IN I/aVL/V5/V6] ABNORMAL ECG UNCONFIRMED REPORT Electronically signed by : Don Perry MD 06/24/2022 06:56:34
--- NOTE | 2022-06-23 16:45 | HMH.EDGENADL ---
Discharge Plan Disposition Patient Disposition: Home, Self-Care Condition: Good Prescriptions Prescriptions: New methylprednisolone [Medrol] 4 mg tablet 4 mg PO DIRECTED Qty: 21 0RF Rx Instructions: Take as directed on package instructions doxycycline monohydrate 100 mg capsule 100 mg PO BID 10 Days Qty: 20 0RF No Action albuterol sulfate 2.5 mg /3 mL (0.083 %) solution for nebulization 2.5 mg INHALATION TID Qty: 180 3RF pantoprazole 40 mg tablet,delayed release (DR/EC) See Rx Instructions .ROUTE .COMPLEX Qty: 90 3RF Dose Instruction: TAKE 1 TABLET BY MOUTH ONCE DAILY IN THE MORNING Rx Instructions: TAKE 1 TABLET BY MOUTH ONCE DAILY IN THE MORNING cholecalciferol (vitamin D3) 25 mcg (1,000 unit) capsule 1,000 unit PO DAILY Qty: 90 1RF ergocalciferol (vitamin D2) 1,250 mcg (50,000 unit) capsule See Rx Instructions .ROUTE .COMPLEX Qty: 12 0RF Dose Instruction: TAKE 1 CAPSULE BY MOUTH ONCE WEEKLY Rx Instructions: TAKE 1 CAPSULE BY MOUTH ONCE WEEKLY guaifenesin 600 mg tablet extended release 12hr 600 mg PO BID olanzapine 5 mg tablet 5 mg PO HS nicotine 21 mg/24 hr patch 24 hour 1 patch TD DAILY Qty: 30 2RF albuterol sulfate [Proventil HFA] 90 mcg/actuation HFA aerosol inhaler 2 puff IH Q8H Qty: 8.5 2RF Trelegy Ellipta 100-62.5-25 mcg blister with device 1 inh IH DAILY Qty: 60 2RF alprazolam 0.5 mg tablet 0.5 mg PO BID Qty: 60 0RF gabapentin 800 mg tablet 800 mg PO TID Qty: 90 0RF oxycodone-acetaminophen 7.5-325 mg tablet 1 tab PO BID Qty: 60 0RF Symbicort 160-4.5 mcg/actuation HFA aerosol inhaler 2 inh INHALATION Q12H Qty: 10.2 2RF metoprolol tartrate 25 mg tablet See Rx Instructions .ROUTE .COMPLEX Qty: 180 3RF Dose Instruction: TAKE 1 TABLET BY MOUTH TWICE DAILY Rx Instructions: TAKE 1 TABLET BY MOUTH TWICE DAILY losartan 100 mg tablet See Rx Instructions .ROUTE .COMPLEX Qty: 90 3RF Dose Instruction: TAKE 1 TABLET BY MOUTH EVERY DAY Rx Instructions: TAKE 1 TABLET BY MOUTH EVERY DAY atorvastatin 10 mg tablet See Rx Instructions .ROUTE .COMPLEX Qty: 90 0RF Dose Instruction: TAKE 1 TABLET BY MOUTH AT BEDTIME FOR CHOLESTEROL Rx Instructions: TAKE 1 TABLET BY MOUTH AT BEDTIME FOR CHOLESTEROL citalopram 40 mg tablet See Rx Instructions .ROUTE .COMPLEX Qty: 90 0RF Dose Instruction: TAKE ONE TABLET BY MOUTH DAILY Rx Instructions: TAKE ONE TABLET BY MOUTH DAILY levothyroxine 100 mcg tablet See Rx Instructions .ROUTE .COMPLEX Qty: 90 0RF Dose Instruction: TAKE ONE TABLET BY MOUTH DAILY FOR THYROID Rx Instructions: TAKE ONE TABLET BY MOUTH DAILY FOR THYROID loratadine 10 mg tablet See Rx Instructions .ROUTE .COMPLEX Qty: 30 0RF Dose Instruction: TAKE ONE TABLET BY MOUTH DAILY FOR ALLERGIES Rx Instructions: TAKE ONE TABLET BY MOUTH DAILY FOR ALLERGIES Referrals Follow up/Referrals: Darren Bueno MD [Primary Care Provider] - See instructions Clinical Impressions Clinical Impression: COPD exacerbation, Bleb, lung Instructions Patient Instructions: DI for Chronic Obstructive Pulmonary Disease Discharge ED Provider: Alejandro Colmenares Adult HPI General Chief complaint: Shortness of Breath/Dyspnea Stated complaint: SOB Time Seen by Provider: 06/23/22 16:45 Mode of Arrival: Ambulatory Source of Information: Patient Limitations: No Limitations Description of Symptoms (Recalled from ER Triage Doc. by RN): to ed per pvt car pt sent by pcp for eval due to sob. pt states sob started 2 days ago using inhalers with no relief of symptoms. denies fever, chills, nausea, vomiting History of Present Illness HPI narrative: This is a 67-year-old female presented to the emergency department with some shortness of breath. Patient with longstanding history of COPD and shortness of breath.
--- NOTE | 2022-06-23 17:03 | CT_ITS ---
PROCEDURE INFORMATION: Exam: CT Chest Without Contrast; Diagnostic Exam date and time: 06/23/2022 5:01 PM Age: 67 years old Clinical indication: Cough TECHNIQUE: Imaging protocol: Diagnostic computed tomography of the chest without contrast. Radiation optimization: All CT scans at this facility use at least one of these dose optimization techniques: automated exposure control; mA and/or kV adjustment per patient size (includes targeted exams where dose is matched to clinical indication); or iterative reconstruction. COMPARISON: CR XR CHEST PORTABLE 06/23/2022 4:37 PM FINDINGS: Lungs: Evidence of prior granulomatous disease. Calcified granulomas demonstrated in the left upper lobe as well as the perihilar region. Extensive bullous formation in the upper lobes bilaterally with chronic pleural thickening in the right lung apex. No evidence of pneumothorax. Extensive bullous formation demonstrated throughout both lungs. Pleural spaces: See Lungs finding. Heart: Unremarkable. No cardiomegaly. No pericardial effusion. Mediastinal space: Displacement of the mediastinum to the right. Lymph nodes: Unremarkable. No enlarged lymph nodes. Vasculature: Regions of atherosclerotic vascular calcification involving the aortic arch. Spleen: Splenic granulomas Bones/joints: Multiple compression fracture deformities T7, T10 and T12. Retropulsion of the T7 and T12 vertebral bodies into the spinal canal with thoracic cord effacement. Multiple chronic left 2nd, 3rd, 4th, 5th, 7th a 9 and 10 rib fractures Soft tissues: Unremarkable. IMPRESSION: 1. Findings compatible with centrilobular emphysema. 2. Large bullous formation in the upper lobes bilaterally. No evidence of pneumothorax. 3. Evidence of prior granulomatous disease. 4. Please see above report for discussion of nonacute findings.
[2022-06-23 17:07] LABS: Basophils # 0.1 K/mm3 (0-0.2); Basophils % 2.2 % (0.1-2.0); Eosinophils % 0.3 % (0.1-12.0); Hematocrit 47.5 % (37.0-47.0); Hemoglobin 14.4 g/dL (12.2-16.2); Lymphocytes # 1.2 K/mm3 (0.7-4.5); Lymphocytes % 21.4 % (10-50); Mean Corpuscular HGB Conc 30.4 g/dL (31.8-35.4); Mean Corpuscular Hemoglobin 29.5 pg (27.0-31.2); Mean Corpuscular Volume 97.1 fl (81-99); Mean Platelet Volume 9.6 fl (7.4-10.4); Monocytes # 0.6 K/mm3 (0.1-1.0); Neutrophils # 3.7 K/mm3 (1.8-7.8); Neutrophils % 66.1 % (37.0-80.0); Platelet Count 165 K/mm3 (142-424); Red Blood Count 4.89 M/mm3 (4.20-5.40); Red Cell Distribution Width 14.7 % (11.5-17.5); White Blood Count 5.6 K/mm3 (4.8-10.8)
[2022-06-23 17:24] LABS: Chloride 102 mmol/L (98-107); Potassium 4.4 mmoL/L (3.5-5.1); Sodium 141 mmol/L (136-145)
[2022-06-23 17:26] LABS: Blood Urea Nitrogen 18 mg/dl (7-17); Creatinine Clearance Estimated 54 mL/min (50-200); Estimated Glomerular Filt Rate 63 ml/min (>60); GFR (African American) 76 ML/MIN (>60)
[2022-06-23 17:27] LABS: Alanine Aminotransferase 18 U/L (12-78); Albumin Level 4.4 g/dl (3.5-5.0); Albumin/Globulin Ratio 1.6 (1.1-1.8); Alkaline Phosphatase 118 U/L (38-126); Anion Gap 14.4 mEq/L (5-15); Aspartate Amino Transferase 35 U/L (14-36); Calcium 8.7 mg/dl (8.4-10.2); Carbon Dioxide 29 mmol/L (22.0-30.0); Globulin 2.8 g/dL (1.3-3.2); Glucose 122 mg/dl (74-100); Total Protein,Serum 7.2 g/dl (6.3-8.2)
[2022-06-23 17:36] LABS: NT Pro Brain Natriuretic Pep. 4140 pg/mL (0-125)
[2022-06-23 17:40] LABS: Bilirubin,Total < 0.1 mg/dl (0.2-1.3); Troponin I < 0.01 ng/ml (0.00-0.034)
--- NOTE | 2022-06-23 18:53 | PC.NURSE ---
updated on plan of care
[2022-06-23 19:18] LABS: Coronavirus 19, PCR Not Detected (NotDetected); Influenza A, PCR Not Detected (NotDetected); Influenza B, PCR Not Detected (NotDetected)
[2022-06-23 19:56] LABS: Troponin I < 0.01 ng/ml (0.00-0.034)
--- NOTE | 2022-06-23 20:36 | PC.NURSE ---
PT ARRIVED TO FLOOR VIA WHEEL CHAIR AT THIS TIME.
[2022-06-23 23:43] LABS: Troponin I < 0.01 ng/ml (0.00-0.034)
[2022-06-24] VITALS (13 sets, daily range): BP systolic 108–178; BP diastolic 56–88; PULSE 60–91; RESP 16–18; TEMP 36.3–37.1; O2SAT 94–99
--- NOTE | 2022-06-24 05:12 | PC.NURSE ---
NO ACUTE CHANGES SINCE PREVIOUS ASSESSMENT. PT HAS RESTED WELL SINCE ARRIVING TO THE FLOOR. LUNG SOUNDS REMAINED DIMINISHED BILATERALLY. TOLERATING 2L NASAL CANNULA WELL, THIS IS WHAT SHE WEARS AT HOME. PT HAS C/O PAIN IN HER BLE ONCE THIS SHIFT AND WAS MEDICATED PER NOV FOR PAIN. ALL HOME MEDS WERE RESTARTED PER MD HAIR SPECIALISTBARBARA. NO C/O N/V/D OR SOB. REMAINS NSR ON TELE. CALL METZ WITHIN REACH.
[2022-06-24 06:52] LABS: Anion Gap 12.9 mEq/L (5-15); Blood Urea Nitrogen 20 mg/dl (7-17); Calcium 8.1 mg/dl (8.4-10.2); Carbon Dioxide 25 mmol/L (22.0-30.0); Chloride 104 mmol/L (98-107); Creatinine Clearance Estimated 54 mL/min (50-200); Estimated Glomerular Filt Rate 84 ml/min (>60); GFR (African American) 101 ML/MIN (>60); Glucose 133 mg/dl (74-100); Potassium 4.9 mmoL/L (3.5-5.1); Sodium 137 mmol/L (136-145)
[2022-06-24 06:57] LABS: Basophils % 1.2 % (0.1-2.0); Eosinophils % 0.3 % (0.1-12.0); Hematocrit 44.3 % (37.0-47.0); Hemoglobin 13.5 g/dL (12.2-16.2); Lymphocytes % 25.9 % (10-50); Mean Corpuscular HGB Conc 30.4 g/dL (31.8-35.4); Mean Corpuscular Hemoglobin 29.1 pg (27.0-31.2); Mean Corpuscular Volume 95.6 fl (81-99); Mean Platelet Volume 9.8 fl (7.4-10.4); Monocytes # 0.3 K/mm3 (0.1-1.0); Monocytes % 7.6 % (1.7-9.3); Neutrophils # 2.4 K/mm3 (1.8-7.8); Neutrophils % 65.1 % (37.0-80.0); Platelet Count 169 K/mm3 (142-424); Red Blood Count 4.64 M/mm3 (4.20-5.40); Red Cell Distribution Width 14.7 % (11.5-17.5); White Blood Count 3.7 K/mm3 (4.8-10.8)
--- NOTE | 2022-06-24 08:15 | EXP.PHA.VTE ---
[facility] Pharmacy VTE Monitoring Patient Demographics Admission date: 06/23/22 Report Date: 06/24/22 Time: 08:15 Patient Allergies codeine Allergy (Intermediate, Verified 06/23/22 15:04) morphine Allergy (Intermediate, Verified 06/23/22 15:04) Confusion tizanidine Allergy (Mild, Verified 06/23/22 15:04) Made her loopy Opioids - Morphine Analogues Adverse Reaction (Severe, Verified 06/23/22 15:04) hallucinations Height: 1.6 m Weight: 62.142 kg Current Active Problems (Updated 06/23/22 @ 21:34 by Loree Castellon RN) Bleb, lung (Acute) COPD exacerbation (Acute) VTE Risk Labs: VTE Related Lab Results Hgb 13.5 g/dL (12.2-16.2) 06/24/22 06:20 Hct 44.3 % (37.0-47.0) 06/24/22 06:20 Plt Count 169 K/mm3 (142-424) 06/24/22 06:20 BUN 20 mg/dl (7-17) H 06/24/22 06:20 Creatinine 0.70 mg/dl (0.52-1.04) D 06/24/22 06:20 Estimated Creat Clear 54 mL/min (50-200) 06/24/22 06:20 Was VTE Risk Assessment Performed: Yes VTE Score: 3 VTE Risk Level: Low Risk Clinical Trial Participant: No Prophylaxis VTE Prophylaxis Ordered?: Yes Types of VTE Prophylaxis: TEDS Knee High and Pharmacological Location of Applied Device: Bilateral Lower Extremeties Pharmacologic Type: Enoxaparin
--- NOTE | 2022-06-24 13:20 | HMH.PHAINT1 ---
Pharmacy Intervention Comments: MEDICATION RECONCILIATION COMPLETE USING LIST FROM MOST RECENT MD OFFICE VISIT, EXTERNAL PHARMACY FILL HISTORY, AND PATIENT INTERVIEW VIA NURSE (ASKING WHICH INHALERS PATIENT USES AT HOME).
--- NOTE | 2022-06-24 14:10 | EXP.HP ---
History of Present Illness *Admission Date: 06/23/22 *History of present illness: This is a 67-year-old female presented to the emergency department with some shortness of breath.? Patient with longstanding history of COPD and shortness of breath.? Patient states that she was staying at a friend's house and had a fan blowing on her all night.? She woke up and was having difficulties breathing.? Patient has had some cough and difficulty breathing since then.? Cough is been productive of white sputum in nature.? No hemoptysis.? She denies any fevers or chills.? No headache or change in vision.? No focal weakness.? No abdominal pain or vomiting.? No diarrhea. workup included xray chest and ct chest. imaging suggests advanced copd patient wears 02 at home wheezing at time of examination [facility] Medical History Anxiety COPD (chronic obstructive pulmonary disease) Hepatitis C antibody positive in blood Hypertension Hypothyroidism Pneumonia Tobacco use Surgical History (Updated 06/23/22 @ 21:34 by Loree Castellon RN) H/O thyroidectomy History of cholecystectomy History of hysterectomy History of tonsillectomy Family History (Updated 06/23/22 @ 21:34 by Loree Castellon RN) Other No significant family history Social History (Updated 06/23/22 @ 21:34 by Loree Castellon RN) Smoking Status: Current every day smoker tobacco type: cigarettes packs per day: 1 alcohol intake: never substance use type: denies use current occupational status: disabled Travel in the last 8 weeks: None household members: family housing: house Review of Systems Constitutional Constitutional: Reports system reviewed and no additional complaints, except as documented and Denies headache(s) Eyes Eyes: Reports system reviewed and no additional complaints, except as documented ENT Ears, Nose, Mouth, and Throat: Denies headache(s), Reports nasal congestion and Reports post nasal drip *Cardiovascular Cardiovascular: Reports system reviewed and no additional complaints, except as documented, Reports dyspnea and Reports dyspnea on exertion *Respiratory Respiratory: Reports cough, Reports dyspnea, Reports dyspnea on exertion and Reports wheezing *Gastrointestinal Gastrointestinal: Reports system reviewed and no additional complaints, except as documented *Genitourinary Genitourinary: Reports system reviewed and no additional complaints, except as documented *Musculoskeletal Musculoskeletal: Reports system reviewed and no additional complaints, except as documented Integumentary/Breasts Skin/Breast: Reports system reviewed and no additional complaints, except as documented *Neurologic Neurologic: Reports system reviewed and no additional complaints, except as documented and Denies headache(s) Psychiatric Psychiatric: Reports system reviewed and no additional complaints, except as documented Endocrine Endocrine: Reports system reviewed and no additional complaints, except as documented Hematologic/Lymphatic Hematologic/Lymphatic: Reports system reviewed and no additional complaints, except as documented Allergic/Immunologic Allergic/Immunologic: Reports seasonal rhinorrhea, Denies urticaria and Reports wheezing Meds Home Medications and Allergies Home Medications Medication Instructions Recorded Confirmed Type guaifenesin 600 mg tablet, 600 mg PO BID Congestion/chest 03/28/22 06/23/22 History extended release 12 hr congesti olanzapine 5 mg tablet 5 mg PO HS SLEEP 03/28/22 06/23/22 History albuterol sulfate 2.5 mg/3 mL 2.5 mg inhalation TID COPD 06/23/22 06/24/22 History (0.083 %) solution for nebulization albuterol sulfate 90 mcg/actuation 2 puff inhalation Q8H COPD 06/23/22 06/23/22 History aerosol inhaler (Proventil HFA) alprazolam 0.5 mg tablet 0.5 mg PO BID Anxiety 06/23/22 06/23/22 History atorvastatin 10 mg tablet 10 mg PO HS Cholesterol 06/23/22 06/24/22 History cholecalciferol (vitamin D3) 25 1,000 unit PO DAILY Supplem
--- NOTE | 2022-06-24 17:11 | PC.NURSE ---
pt states she had a total of 3 unmeasured voids today. Pt agreed to sit up in chair for dinner but then refused once the tray was taken to her. will place a hat in her toilet.
--- NOTE | 2022-06-24 19:16 | PC.NURSE ---
Pt a/o x 4. No c/o's at this time. VSS. Pt resting at this time, will wake when spoken to. Less audible wheezes noted. Remains on 2 L NC. CB in reach
[2022-06-25] VITALS (15 sets, daily range): BP systolic 103–141; BP diastolic 60–84; PULSE 57–80; RESP 16–24; TEMP 36.2–36.9; O2SAT 90–98; BMI 24.3
--- NOTE | 2022-06-25 04:07 | PC.NURSE ---
pt is A&OX4. pt rested well this shift. O2 sats >90% on 2L NC. no c/o pain or SOA this shift. ambulates to and from bathroom with assistance. CB in reach.
[2022-06-25 07:22] LABS: Basophils # 0.1 K/mm3 (0-0.2); Basophils % 1.2 % (0.1-2.0); Eosinophils % 0.3 % (0.1-12.0); Hematocrit 44.2 % (37.0-47.0); Hemoglobin 13.5 g/dL (12.2-16.2); Lymphocytes # 1.1 K/mm3 (0.7-4.5); Lymphocytes % 14.9 % (10-50); Mean Corpuscular HGB Conc 30.5 g/dL (31.8-35.4); Mean Corpuscular Hemoglobin 29.5 pg (27.0-31.2); Mean Corpuscular Volume 96.8 fl (81-99); Mean Platelet Volume 9.7 fl (7.4-10.4); Monocytes # 0.3 K/mm3 (0.1-1.0); Monocytes % 3.4 % (1.7-9.3); Neutrophils # 5.9 K/mm3 (1.8-7.8); Neutrophils % 80.2 % (37.0-80.0); Platelet Count 178 K/mm3 (142-424); Red Blood Count 4.56 M/mm3 (4.20-5.40); Red Cell Distribution Width 14.3 % (11.5-17.5); White Blood Count 7.4 K/mm3 (4.8-10.8)
[2022-06-25 07:32] LABS: Alanine Aminotransferase 18 U/L (12-78); Albumin Level 3.8 g/dl (3.5-5.0); Albumin/Globulin Ratio 1.4 (1.1-1.8); Alkaline Phosphatase 84 U/L (38-126); Anion Gap 13.3 mEq/L (5-15); Aspartate Amino Transferase 29 U/L (14-36); Blood Urea Nitrogen 33 mg/dl (7-17); Calcium 8.7 mg/dl (8.4-10.2); Carbon Dioxide 26 mmol/L (22.0-30.0); Chloride 104 mmol/L (98-107); Creatinine Clearance Estimated 54 mL/min (50-200); Estimated Glomerular Filt Rate 63 ml/min (>60); GFR (African American) 76 ML/MIN (>60); Globulin 2.7 g/dL (1.3-3.2); Glucose 147 mg/dl (74-100); Potassium 5.3 mmoL/L (3.5-5.1); Sodium 138 mmol/L (136-145); Total Protein,Serum 6.5 g/dl (6.3-8.2)
[2022-06-25 07:34] LABS: Bilirubin,Total 0.1 mg/dl (0.2-1.3)
--- NOTE | 2022-06-25 13:45 | EXP.PN ---
Subjective *Date: 06/25/22 *Time: 13:45 Interval history: continues to wheeze this morning subjective tightness left base Exam Data for Last 24 hours Vital signs and Labs for Last 24 Hours: Temp Pulse Resp BP Pulse Ox FiO2 98.0 F 74 17 125/84 97 28 06/25/22 10:57 06/25/22 11:42 06/25/22 10:57 06/25/22 10:57 06/25/22 11:42 06/24/22 17:57 Laboratory Results - last 24 hr 06/25/22 07:13: WBC 7.4 D, RBC 4.56, Hgb 13.5, Hct 44.2, MCV 96.8, MCH 29.5, MCHC 30.5 L, RDW 14.3, Plt Count 178, MPV 9.7, Neut % (Auto) 80.2 H, Lymph % (Auto) 14.9, [place] % (Auto) 3.4, Eos % (Auto) 0.3, Baso % (Auto) 1.2, Neut # (Auto) 5.9, Lymph # (Auto) 1.1, [place] # (Auto) 0.3, Eos # (Auto) 0.0, Baso # (Auto) 0.1 06/25/22 07:13: Sodium 138, Potassium 5.3 H, Chloride 104, Carbon Dioxide 26, Anion Gap 13.3, BUN 33 H D, Creatinine 0.90 D, Estimated Creat Clear 54, Estimated GFR 63, Est GFR ( Amer) 76 D, Glucose 147 H, Calcium 8.7, Total Bilirubin 0.1 L, AST 29, ALT 18, Alkaline Phosphatase 84, Total Protein 6.5, Albumin 3.8, Globulin 2.7, Albumin/Globulin Ratio 1.4 I & O for Last 24 hours: Intake & Output 06/22/22 06/23/22 06/24/22 06/25/22 23:59 23:59 23:59 23:59 Intake Total 1330 / 1330 540 / 540 Output Total 0 / 0 0 / 0 Balance 1330 / 1330 540 / 540 Weight 137 lb 137 lb 136 lb 15.994 oz Constitutional Constitutional: no acute distress *Routine HEENT Exam Head: Present normocephalic *Routine Neck Exam Neck: Present supple *Routine Respiratory Exam Respiratory: Present rhonchi, wheezes and crackles; Absent respiratory distress *Routine Cardiovascular Exam Cardiovascular: Present RRR *Routine Abdominal Exam Abdominal: Present soft *Routine Extremities Exam Extremities: Absent cyanosis *Routine Skin Exam Skin: Absent cyanosis or jaundice *Routine Neurological Exam Neurological: Present alert, oriented X3, vision grossly intact and hearing grossly intact Assessment and Plan *Assessment and plan (1) COPD exacerbation: Status: Acute Category: Medical Code(s): J44.1 - Chronic obstructive pulmonary disease with (acute) exacerbation (2) Diabetes: Status: Chronic Category: Medical Code(s): E11.9 - Type 2 diabetes mellitus without complications Plan continue iv abx/steroids/bronchodilation see orders
--- NOTE | 2022-06-25 19:32 | PC.NURSE ---
Pt is A/ox4. She is on 2L NC all day and has tolerated it well. She was very drowsy this morning, but stated because she didn't sleep well last night. Around 11 she was very alert. She has tolerated diet well today.
[2022-06-26] VITALS (14 sets, daily range): BP systolic 135–159; BP diastolic 55–85; PULSE 60–73; RESP 16–20; TEMP 36–36.8; O2SAT 90–96
--- NOTE | 2022-06-26 04:50 | PC.NURSE ---
PT SLEPT MOST OF THE NIGHT. SHE REMAINS ON 2L NC. O2 SATS HAVE BEEN 92-94%. INSPIRATORY AND EXPIRATORY WHEEZES AUSCULTATED. NSR ON TELE. NO NEEDS AT THIS TIME
--- NOTE | 2022-06-26 09:07 | HMH.OTEV ---
OT Inpatient Evaluation Rehab OT IP Evaluation Start: 06/26/22 08:23 Freq: ONCE Status: Complete Protocol: Document 06/26/22 08:58 [facility] (Rec: 06/26/22 09:07 [facility] [id number]) Rehab OT IP Assessment Subjective History Pt oriented x4 on arrival. Pt was admitted via ED on due to COPD exacerbation and SOB. Prior to being in the hospital, pt lived alone at home. Pt claims she was independent with all ADLs and IADLs. She did use a can out in public or on uneven ground. Pt wore oxygen each night. Pt was still driving. Subjective I am much better than I was. Pt resting in bed on arrival. Pt went from supine to sitting at eob with sba. Pt completed lower body dressing by donning her shoes with sba. Pt stood from eob with sba. Pt engaged in functional transfer of ~40 feet with sba to chair. Pt sat down in chair with sba. Pt was left sitting in chair with call barber and all other needs in reach. Objective Patient Orientation Person,Place,Birthday,Year Upper Extremity Gross ROM WFL Bed Mobility bed mobility-scooting,bed mobility - supine/sit,bed mobility - rolling Assist Level Supervision/Stand by Transfer Training Sit/Stand Transfer Assist Level Supervision/Stand by Chair Transfer Ability Supervision/Stand by Chair Transfer Technique Sit to/from Ambulatory Chair Transfer Assistive Devices None Lower Body Dressing Ability Standby Assistance Rehab OT IP prob,goals,plan Problems Date of Evaluation: 06/26/22 Rehab Potential Rehab Potential Innapropriate for Skilled Therapy Discharge Plan OT Discharge Plan At this time, pt appears to be at her baseline for ADL independence and functional transfers. Pt can return home once medically stable per physician. Eval Complexity Eval Charge Codes [id number]
--- NOTE | 2022-06-26 09:28 | EXP.PULM.CON ---
History of Present Illness History of present illness: Ms. Arroyo is a 67-year-old female current smoker greater than [id number] symptomatic after diagnosis of asthma COPD presented to the hospital complaining of worsening respiratory distress along with subjective fevers worsening productive cough for the last 3 to 4 days not improving with her as needed inhaler. Denies any known sick contacts. PFSH PFSH Medical History Anxiety COPD (chronic obstructive pulmonary disease) COPD exacerbation Hepatitis C antibody positive in blood Hypertension Hypothyroidism Pneumonia Tobacco use Surgical History (Updated 06/23/22 @ 21:34 by Loree Castellon, RN) H/O thyroidectomy History of cholecystectomy History of hysterectomy History of tonsillectomy Family History (Updated 06/23/22 @ 21:34 by Loree Castellon RN) Other No significant family history Social History (Updated 06/23/22 @ 21:34 by Loree Castellon RN) Smoking Status: Current every day smoker tobacco type: cigarettes packs per day: 1 alcohol intake: never substance use type: denies use current occupational status: disabled Travel in the last 8 weeks: None household members: family housing: house Review of Systems Constitutional Constitutional: Reports fatigue, Reports fever(s) and Denies headache(s) Eyes Eyes: Denies eye discharge, Denies dry eyes, Denies irritation and Denies itchy eyes ENT Ears, Nose, Mouth, and Throat: Denies headache(s), Denies lip swelling and Denies throat swelling *Cardiovascular Cardiovascular: Reports dyspnea and Reports dyspnea on exertion *Respiratory Respiratory: Reports chest congestion, Reports cough, Reports dyspnea, Reports dyspnea on exertion, Reports excessive phlegm production and Reports wheezing *Gastrointestinal Gastrointestinal: Denies abdominal pain, Denies belching and Denies cramping *Musculoskeletal Musculoskeletal: Reports back pain, Reports myalgias and Reports other (No small joint swelling or Pain) *Neurologic Neurologic: Reports system reviewed and no additional complaints, except as documented and Denies headache(s) Psychiatric Psychiatric: Denies homicidal ideation and Denies suicidal ideation Endocrine Endocrine: Reports fatigue and Denies heat intolerance Hematologic/Lymphatic Hematologic/Lymphatic: Denies easy bleeding and Denies lymphadenopathy Allergic/Immunologic Allergic/Immunologic: Denies itchy eyes, Denies lip swelling, Denies throat swelling and Reports wheezing Pulmonology Exam Inpatient Vital signs and Labs for Last 24 Hours: Temp Pulse Resp BP Pulse Ox FiO2 98.2 F 67 16 153/80 H 96 50 06/26/22 08:00 06/26/22 08:00 06/26/22 08:00 06/26/22 08:00 06/26/22 08:00 06/26/22 06:39 I & O for Labs for Last 24 Hours: Intake & Output 06/23/22 06/24/22 06/25/22 06/26/22 23:59 23:59 23:59 23:59 Intake Total 1330 / 1330 1122 / 1122 480 / 480 Output Total 0 / 0 100 / 100 600 / 600 Balance 1330 / 1330 1022 / 1022 -120 / -120 Weight 137 lb 137 lb 136 lb 15.994 oz Head: Present normocephalic and atraumatic ENT: Present normal exam, normal oropharynx and mucous membranes moist Neck: Present normal inspection and full ROM Respiratory: Present respiratory distress, wheezes, able to speak in complete sentences and symmetric chest movement; Absent accessory muscle use or patient mechanically ventilated Cardiac: Present S1/S2, Tachycardia and radial pulses present GI: Present soft and distention; Absent tenderness or guarding Rectal (female): Present deferred (female): Present deferred Skin: Present intact; Absent cyanosis or jaundice Neuro: Present alert, awake and oriented x 3 Extremities: Present normal inspection; Absent clubbing or cyanosis Psychiatric: Present normal affect and cooperative Meds Home Medications and Allergies Home Medications Medication Instructions Recorded Confirmed Type guaifenesin 600 mg tablet, 600 mg PO BID Congestion/chest 03/28/22
--- NOTE | 2022-06-26 10:06 | HMH.PTEV ---
Physical Therapy Evaluation Rehab PT IP Evaluation Start: 06/26/22 08:23 Freq: ONCE Status: Active Protocol: Document 06/26/22 09:28 MARY (Rec: 06/26/22 10:05 MARY [id number]) Subjective/History History History This is the initial PT IP eval for Tuyet Arroyo, a 67 y/o female admitted to [facility] for respiratory failure and COPD exacerbation. Pt is also a tobacco user. Written by Miranda Nobles, SPT Subjective Subjective Pt reports she lives alone in single-story home alone. Pt notes that there is an entryway from the garage without steps, and that within the house there are one-step transitions from the foyer and living room area. Pt notes she uses a cane anytime she leaves the house, and that she is on supplemental oxygen at- home. Rehab PT IP Eval Objective Appearance Patient Behavior Appropriate,Cooperative Patient Orientation Person,Place,Name,Age,Year, Situation Difficulty following instructions none Speech Pattern Clear,Appropriate,Coherent Ambulation Patient Able to Ambulate Yes Ambulation Observation IP General Gait Pattern Observation Wide Based Gait Ambulation Distance (feet) 40 Ambulation Assistive Device None Ambulation Ability Supervision/Stand by,Contact Guard/Hand Hold Balance Ability to Arise Able, uses arms to help Sitting Balance Steady, safe Standing Balance Steady, wide stance Dynamic Sitting Balance Ability Fair Dynamic Standing Balance Ability Fair Transfers Bed Transfer Ability Independent,Supervision/Stand by Chair Transfer Ability Independent,Supervision/Stand by Sit to Stand Bed Transfer Ability Independent,Supervision/Stand by Sit to Stand Chair Transfer Ability Independent,Supervision/Stand by MMT All Extremities PT MMT WFL Rehab PT IP prob,goals,plan Problems Date of Evaluation: 06/26/22 Rehab Potential Rehab Potential Innapropriate for Skilled Therapy Discharge Plan PT Discharge Plan Pt presents at ne
--- NOTE | 2022-06-26 12:52 | EXP.ACUTE.PN ---
Subjective *Date: 06/26/22 *Time: 12:52 Interval history: doing better this am - less sob but still inactive Medical Exam Vital signs and Labs for Last 24 Hours: Temp Pulse Resp BP Pulse Ox FiO2 97.8 F 65 18 147/79 H 93 L 50 06/26/22 11:48 06/26/22 11:48 06/26/22 11:48 06/26/22 11:48 06/26/22 11:48 06/26/22 06:39 I & O for Labs for Last 24 Hours: Intake & Output 06/24/22 06/25/22 06/26/22 06/27/22 11:59 11:59 11:59 11:59 Intake Total 240 / 240 1390 / 1390 1302 / 1302 Output Total 0 / 0 0 / 0 1000 / 1000 Balance 240 / 240 1390 / 1390 302 / 302 Weight 137 lb 136 lb 15.994 oz Head: Present normocephalic Eyes: Present as per HPI ENT: Present mucous membranes dry Neck: Present trachea midline Respiratory: Present decreased breath sounds and prolonged expiratory phase Cardiac: Present Reg Rate and Rhythm, S4 and Systolic Murmur GI: Present soft Rectal (female): Present deferred Extremities: Absent tenderness Skin: Present intact Neuro: Present Cranial Nerve 2-12 Intact
[2022-06-26 13:44] LABS: Chloride 104 mmol/L (98-107); Potassium 4.6 mmoL/L (3.5-5.1); Sodium 139 mmol/L (136-145)
[2022-06-26 13:47] LABS: Anion Gap 12.6 mEq/L (5-15); Blood Urea Nitrogen 36 mg/dl (7-17); Carbon Dioxide 27 mmol/L (22.0-30.0); Creatinine Clearance Estimated 54 mL/min (50-200); Estimated Glomerular Filt Rate 55 ml/min (>60); GFR (African American) 67 ML/MIN (>60); Glucose 262 mg/dl (74-100)
--- NOTE | 2022-06-26 14:41 | PC.NURSE ---
rounded on patient. no concerns or questions. 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 call light within reach. states she is going to take a nap. encouraged her to ring out as needed
--- NOTE | 2022-06-26 16:39 | PC.NURSE ---
Pt has slept most of the shift. Pt A&O x4. BLT lungs with inspiratory and expiratory wheezing. Pt has been on RA most of the shift and on 2L NC while sleeping. Pt sat up in the chair after breakfast. IV patent. Pt denies any SOA, headache, N/V , or pain
[2022-06-27] VITALS: PULSE 70; O2SAT 94
[2022-06-27 04:00] VITALS: BP 156/75; PULSE 65; PULSE 70; RESP 20; TEMP 36.6; O2SAT 97
--- NOTE | 2022-06-27 05:27 | PC.NURSE ---
Shift summary: Pt has slept majority of shift. Pt continues to tolerate 2 L nc PRN well with sats >90%. Pt is able to ambulate to BR with standby assist. Pt did c/o feeling SOA with cough 1x and stated because of all the junk in my throat. Pt states she normally takes 600mg Mucinex at home HS. MD [employer] consultant made aware. 600mg Mucinex PO BID PRN v/r and carried out. Pt states favorable results. Pt continues to have exp. wheezing bilat t/o lungs. Call light within reach.
[2022-06-27 08:00] VITALS: BP 139/83; PULSE 68; PULSE 80; RESP 18; TEMP 36.6; O2SAT 91
--- NOTE | 2022-06-27 09:33 | EXP.PULM.PN ---
Subjective *Date: 06/27/22 *Time: 10:36 Interval history: No acute respiratory vents overnight. Patient continued to remain on room air. Pulmonology Exam Inpatient Vital signs and Labs for Last 24 Hours: Temp Pulse Resp BP Pulse Ox FiO2 97.8 F 68 18 139/83 91 L 50 06/27/22 08:00 06/27/22 08:00 06/27/22 08:00 06/27/22 08:00 06/27/22 08:00 06/26/22 06:39 Laboratory Results - last 24 hr 06/26/22 13:18: Sodium 139, Potassium 4.6, Chloride 104, Carbon Dioxide 27, Anion Gap 12.6, BUN 36 H, Creatinine 1.00, Estimated Creat Clear 54, Estimated GFR 55 L, Est GFR ( Amer) 67, Glucose 262 H, Calcium 8.0 L I & O for Labs for Last 24 Hours: Intake & Output 06/24/22 06/25/22 06/26/22 06/27/22 23:59 23:59 23:59 23:59 Intake Total 1330 / 1330 1122 / 1122 960 / 960 Output Total 0 / 0 100 / 100 1700 / 1700 675 / 675 Balance 1330 / 1330 1022 / 1022 -740 / -740 -675 / -675 Weight 137 lb 136 lb 15.994 oz Microbiology Reports for the Last 24 Hours: Microbiology 06/27/22 08:30 Sputum - Expectorated Sputum Gram Stain - Final Head: Present normocephalic and atraumatic ENT: Present normal exam, normal oropharynx and mucous membranes moist Neck: Present normal inspection and full ROM Respiratory: Present wheezes, able to speak in complete sentences and symmetric chest movement; Absent accessory muscle use, patient mechanically ventilated or respiratory distress Cardiac: Present S1/S2, Tachycardia and radial pulses present GI: Present soft and distention; Absent tenderness or guarding Rectal (female): Present deferred (female): Present deferred Skin: Present intact; Absent cyanosis or jaundice Neuro: Present alert, awake and oriented x 3 Extremities: Present normal inspection; Absent clubbing or cyanosis Psychiatric: Present normal affect and cooperative Assessment and Plan *Assessment and plan (1) COPD exacerbation: Status: Acute Category: Medical Code(s): J44.1 - Chronic obstructive pulmonary disease with (acute) exacerbation Plan #Acute COPD exacerbation: # Community-acquired pneumonia: Current smoker greater than [id number] smoking history, carries a prior diagnosis of asthma COPD overlap syndrome presents worsening respiratory's along with cough and productive phlegm CT chest personally reviewed, severe upper lobe predominant bullous emphysematous changes. No dense consolidation noted. Calcified lung nodules and left hilar calcified lymphadenopathy. No pneumothorax, large bullous emphysema Labs personally reviewed, increasing leukocytosis on admission, 3.7 to 7.4. Sputum cultures from 2018 positive for Enterobacter aerogenes. Patient was initiated on doxycycline along with DuoNebs every 6 scheduled and steroids. No recent prior PFTs available for review Interval update: Patient respiratory is remained stable. Continue to remain on room air. Still noted to have minimal expiratory wheezing on auscultation, significantly improved from yesterday. She continued to use Trelegy and receiving levofloxacin Plan: -Continue Trelegy 100 scheduled -DuoNebs every 6 hours on as-needed basis. -Levofloxacin 750 mg daily to complete total of 5-day course -Prednisone 40 mg daily x5 days #Thank for involving pulmonary in this patient care. We will follow the patient in pulmonary clinic 4 weeks with a full PFT and a 6-minute walk testing.
--- NOTE | 2022-06-27 10:56 | EXP.DC.SUM ---
General Admission date:: 06/23/22 Discharge date: 06/27/22 HPI HPI HPI: This is a 67-year-old female presented to the emergency department with some shortness of breath.? Patient with longstanding history of COPD and shortness of breath.? Patient states that she was staying at a friend's house and had a fan blowing on her all night.? She woke up and was having difficulties breathing.? Patient has had some cough and difficulty breathing since then.? Cough is been productive of white sputum in nature.? No hemoptysis.? She denies any fevers or chills.? No headache or change in vision.? No focal weakness.? No abdominal pain or vomiting.? No diarrhea. workup included xray chest and ct chest. imaging suggests advanced copd patient wears 02 at home wheezing at time of examination Hospital Course Hospital Course Hospital Course: pt has slowly improved with ivf and abx and steroids plus resp treatments - pt was seen by pul- (1) COPD exacerbation: ?Status:?Acute ?Category:?Medical ?Code(s): J44.1 - Chronic obstructive pulmonary disease with (acute) exacerbation Plan #Acute COPD exacerbation: # Community-acquired pneumonia: Current smoker greater than [id number] smoking history, carries a prior diagnosis of asthma COPD overlap syndrome presents worsening respiratory's along with cough and productive phlegm CT chest personally reviewed, severe upper lobe predominant bullous emphysematous changes.? No dense consolidation noted.? Calcified lung nodules and left hilar calcified lymphadenopathy.? No pneumothorax, large bullous emphysema Labs personally reviewed, increasing leukocytosis on admission, 3.7 to 7.4. Sputum cultures from 2018 positive for Enterobacter aerogenes. Patient was initiated on doxycycline along with DuoNebs every 6 scheduled and steroids. No recent prior PFTs available for review Past medical social and surgical history reviewed Patient appeared to be in minimal respiratory distress.? Saturating 98% on 1 L nasal cannula, weaned to room air saturations maintained at 93% and above.? Do not use any oxygen at home.? Auscultation bilateral diffuse wheezing. Plan: -Continue Trelegy 100 scheduled -DuoNebs every 6 hours on as-needed basis. -Initiate levofloxacin 750 mg daily to complete total of 5-day course -Wean methylprednisolone to prednisone 40 mg daily x5 days starting today pt will continue to be compliant with meds and diet and tob cessation - pt was gina and diet on d/c - Exam Data for Last 24 hours Vital signs and Labs for Last 24 Hours: Temp Pulse Resp BP Pulse Ox FiO2 97.8 F 68 18 139/83 91 L 50 06/27/22 08:00 06/27/22 08:00 06/27/22 08:00 06/27/22 08:00 06/27/22 08:00 06/26/22 06:39 Laboratory Results - last 24 hr 06/26/22 13:18: Sodium 139, Potassium 4.6, Chloride 104, Carbon Dioxide 27, Anion Gap 12.6, BUN 36 H, Creatinine 1.00, Estimated Creat Clear 54, Estimated GFR 55 L, Est GFR ( Amer) 67, Glucose 262 H, Calcium 8.0 L I & O for Last 24 hours: Intake & Output 06/24/22 06/25/22 06/26/22 06/27/22 11:59 11:59 11:59 11:59 Intake Total 240 / 240 1390 / 1390 1302 / 1302 840 / 840 Output Total 0 / 0 0 / 0 1000 / 1000 1475 / 1475 Balance 240 / 240 1390 / 1390 302 / 302 -635 / -635 Weight 137 lb 136 lb 15.994 oz Microbiology Reports for the Last 24 Hours: Microbiology 06/27/22 08:30 Sputum - Expectorated Sputum Gram Stain - Final Constitutional Constitutional: no acute distress *Routine HEENT Exam Head: Present normocephalic Eye: Present EOMI and PERRL ENT: Present mucous membranes moist *Routine Neck Exam Neck: Present supple *Routine Respiratory Exam Respiratory: Present prolonged expiratory phase and rhonchi *Routine Cardiovascular Exam Cardiovascular: Present RRR, murmur and S4 *Routine Abdominal Exam Abdominal: Present soft *Routine Rectal Exam Patient deferred: visual exam and digital exam *Routine Exam Patient deferred: external exam, gr
--- NOTE | 2022-06-28 14:02 | CARE MANAGER ---
Addendum entered by Elma Muhammad 06/28/22 15:37: [facility] has accepted this patient for home health services. Addendum entered by Celina Pompa RN 06/28/22 14:22: [facility] unable to accept and information faxed to [facility] Original Note: Contacted patient related to hospital discharge. She states she is doing a little better, but is feeling weak. She states she did picking tech her medication and is taking it. She is aware of follow up appointments. Discussed needing some therapy. Home health therapy to be consulted for possible admission. Information faxed to [facility]. SARA Beck
== END 2022-06-27 12:22 | disposition home or self-care (01) ==
LOC: ER 18:53 → 2ND 19:17
PROVIDERS: Family Medicine; Admitting Provider Internal Medicine Adolescent Medicine; Emergency Provider Emergency Medicine; PCP Emergency Medicine; Visit Provider Emergency Medicine
DX: J44.1 Chronic obstructive pulmonary disease with (acute) exacerbation (principal); F17.210 Nicotine dependence, cigarettes, uncomplicated; E11.9 Type 2 diabetes mellitus without complications; I10 Essential (primary) hypertension; E03.9 Hypothyroidism, unspecified; Z79.899 Other long term (current) drug therapy; R06.9 Unspecified abnormalities of breathing; Z20.822 Contact with and (suspected) exposure to COVID-19; B19.20 Unspecified viral hepatitis C without hepatic coma
CPT/HCPCS: G0378; 36415; 71045; 71250; 80048; 80053; 80305; 83880; 84484; 85025; 87070; 87077; 87186; 87205; 93005; 93306; 94640; 97161; 97165; 99285; C9803; J2405; U0003; U0005

== ENCOUNTER → 2022-09-01 13:15 | Outpatient (CLI) | payer MEDICARE, MEDICAID, SELFPAY ==
[2022-09-01 19:49] LABS: Barbiturates Screen,Urine Negative ng/ml (<200); Benzodiazepines Screen,Urine Positive ng/ml (<200)
[2022-09-01 19:50] LABS: Amphetamine/Metha Screen,Urine Negative ng/ml (<1000); Cannabinoid Screen,Urine Negative ng/ml (<50)
[2022-09-01 19:51] LABS: Cocaine Screen,Urine Negative ng/ml (<300)
[2022-09-01 19:52] LABS: Methadone Screen,Urine Negative ng/ml (<300); Opiate Screen,Urine Negative ng/ml (<300)
[2022-09-01 19:53] LABS: Phencyclidine Screen,Urine Negative ng/ml (<25)
== END ==
PROVIDERS: PCP Emergency Medicine; Visit Provider Emergency Medicine
DX: Z79.899 Other long term (current) drug therapy (principal); M54.50 Low back pain, unspecified; R39.198 Other difficulties with micturition; B96.29 Other Escherichia coli [E. coli] as the cause of diseases classified elsewhere
CPT/HCPCS: 80305; 87086; 87088; 87186